=== PATIENT | female | born 1975 | race Caucasian/White ===

== ENCOUNTER 2017-07-23 06:37 | Day surgery (SDC) | payer BC ==
[~2017-07-23] VITALS: Ht 156.2 cm; Wt 73.0 kg
[~2017-07-23 06:37] MED LIST: ASPIRIN E.C.81 M1 PO; CENTRUM SILVER1 EAC4 PO; CINNAMON500 MG PO; DEXILANT60 MG PO; GLEEVEC400 MG PO; GLUCOTROL10 MG PO; IMATINIB PO; INTERFERON SQ; LASIX20 MG PO; LEUKINE SC; LEXAPRO10 MG PO; LO-DOSE ASPIRIN81 M1 PO; PROTONIX40 MG PO; TRADJENTA5 MG PO; TRULICITY0.75 MG/0. SC; TYLENOL EXTRA500 MG PO; TYLENOL REGULA325 MG PO; Tylenol Regular Stre PO; ZANTAC150 MG PO; ZOFRAN4 MG PO; ZYRTEC10 M3 PO; [UNRECOGNIZED DRUG - OTHER] SQ
[2017-07-23 07:33] VITALS: BP 133/81
[2017-07-23 10:30] VITALS: BP 134/74
[2017-07-23 11:29] VITALS: BP 163/84
== END 2017-07-23 11:40 | disposition home or self-care (01) ==
LOC: SDC 06:37
PROVIDERS: Obstetrics & Gynecology
PROC: 0U5B8ZZ Destruction of Endometrium, Via Natural or Artificial Opening Endoscopic (ICD-10-PCS; principal; 2017-07-23)
DX: N92.0 Excessive and frequent menstruation with regular cycle (principal); N94.6 Dysmenorrhea, unspecified; E11.43 Type 2 diabetes mellitus with diabetic autonomic (poly)neuropathy; K31.84 Gastroparesis; K44.9 Diaphragmatic hernia without obstruction or gangrene; K21.9 Gastro-esophageal reflux disease without esophagitis; Z85.6 Personal history of leukemia; Z79.82 Long term (current) use of aspirin; Z79.84 Long term (current) use of oral hypoglycemic drugs; Z91.040 Latex allergy status; Z91.013 Allergy to seafood; Z87.891 Personal history of nicotine dependence
CPT/HCPCS: 82948; J0330; J0690; J1170; J1885; J2405; J3010